=== PATIENT | female | born 1960 | race Caucasian/White ===

== ENCOUNTER 2018-04-26 12:17 | Emergency (ER) | payer BC, OTHER ==
[2018-04-26] MEDS ORDERED: TORAdol 30 mg Injection IM ONE (13:00)
[2018-04-26] MEDS ORDERED: Norflex 60 MG/2 ML IM ONE (13:00)
[2018-04-26] MEDS ORDERED: Norflex 60 MG/2 ML ONE (13:06)
[2018-04-26] MEDS ORDERED: TORAdol 30 mg Injection ONE (13:06)
--- NOTE | 2018-04-26 13:56 | XRAY ---
Exam: Two-view chest from 04/26/2018. Comparison: Two-view chest from 07/01/2014. Indication: Mid back pain. Findings: Upright PA and lateral chest films are submitted for evaluation. The heart size and contour are normal. A minimal epicardial fat pad is seen at the left cardiophrenic angle representing no change. Also, minimal subsegmental atelectasis versus small focal scar is seen at the lateral left lung base. The remainder of the left lung appears clear. I see a calcified granuloma overlying the lateral right lung base as well as several granulomatous calcifications at the inferior margin of the right hilum consistent with old healed granulomatous disease. This is stable. The remainder of the right lung field appears clear. No vascular congestion or pleural fluid is seen. No pneumothorax is seen. No infiltrate is seen. The patient is status post cholecystectomy. I see evidence of a right shoulder replacement revision. Slight convexity of the lower midthoracic spine toward the right and the thoracolumbar junction toward the left is seen on the frontal film. No thoracic spine compression fracture is seen. Bone demineralization is evident. Impression: 1. Stable, mild, old healed granulomatous disease on the right. 2. Minimal subsegmental atelectasis versus focal scar at the lateral left lung base. This is noted adjacent to a small epicardial fat-pad at the left cardiophrenic angle. 3. No infiltrates or other acute cardiopulmonary disease is seen. 4. Slight S-shaped scoliosis and right shoulder joint arthroplasty revision are seen. There is no acute thoracic spine fracture seen.
--- NOTE | 2018-04-26 14:02 | XRAY ---
Three-view lumbar spine series from 04/26/2018. Comparison: Two-view lumbar spine series from 02/08/2016 and 06/05/2013. Indication: Mid back pain. Findings: AP, lateral image, and a coned-down lateral image of the lumbosacral junction were obtained. There are 5 [id number] lumbar-type vertebra. The sacroiliac joints appear unremarkable on the AP image. Surgical clips consistent with prior cholecystectomy are seen within the right upper quadrant. There is an unremarkable lumbar lordosis. I see no acute lumbar spine fracture, AP traumatic subluxation, or focal bone destruction. There is a suggestion of slight retrolisthesis of L1 with respect to L2, L2 with respect L3, and L3 with respect L4 of about 1-2 mm at each interspace level. In retrospect, I believe this is unchanged. This could be due to some ligamentous laxity. The lumbar interspace heights are adequately maintained. Small anterior vertebral endplate spurs are seen at L2-L3. I note sclerosis and spurring at the L5-S1 facet joints suggesting osteoarthritis. This causes mild compromise upon the L5-S1 neural foramen from the posterior aspect. This is stable. Minimal vascular calcification is seen within the abdominal aorta. No bone destruction is seen. Impression: 1. No acute lumbar spine fracture, AP traumatic subluxation, or other significant focal bone lesion is seen. 2. Incidentally, I believe there is about 1-2 mm retrolisthesis of L1 with respect to L2, L2 with respect to L3, and L3 with respect L4 on the lateral image. In retrospect, this is unchanged. This may be due to some ligamentous laxity. Consider upright lateral flexion and extension views of the lumbar spine for further evaluation. 3. Moderate facet joint arthropathy is seen at L5-S1 representing no significant change.
--- NOTE | 2018-04-26 14:06 | ERPHSYRPT ---
- History of Present Illness Time Seen by Provider: 04/26/18 12:30 Source: patient Exam Limitations: clinical condition Patient Subjective Stated Complaint: Mid back pain after sneezing Triage Nursing Assessment: Pt presents to the ED with complaints of mid back pain. Pt states she sneezed and felt a "pop" in her back. Pt states hx of back pain. Pt states movement makes pain worse, better with rest. No distress noted, skin PWD. Physician History: PATIENT WITH A HISTORY OF RHEUMATOID ARTHRITIS, AND CHRONIC BACK PAIN, SNEEZED THIS AM AND DEVELOPED MID BACK PAIN EXACERBATED UPON BREATHING OR MOTION OF TORSO. DENIES NUMBNESS, TINGLING OR WEAKNESS IN EXTREMITIES, DYSPNEA, FALL OR TRAUMA. Timing/Duration: today Method of Injury: other (SNEEZED) Quality: sharp Back Pain Location: lumbar spine Severity of Pain-Max: moderate Modifying Factors: Improves With: movement (INSPIRATION) Associated Symptoms: denies symptoms Previous symptoms: other (HISTORY OF CHRONIC BACK PAIN) Allergies/Adverse Reactions: codeine Allergy (Verified 04/24/15 05:10) estradiol Allergy (Verified 05/31/16 14:04) fluconazole Allergy (Verified 05/31/16 14:04) hydroxychloroquine sulfate [From Plaquenil] Allergy (Verified 05/31/16 14:04) meloxicam Allergy (Verified 05/31/16 14:04) metoclopramide HCl [From Reglan] Allergy (Verified 05/31/16 14:04) Sulfa (Sulfonamide Antibiotics) Allergy (Verified 04/24/15 05:10) sulfamethoxazole [From Bactrim] Allergy (Verified 05/31/16 14:04) trimethoprim [From Bactrim] Allergy (Verified 05/31/16 14:04) fentanyl Adverse Reaction (Verified 04/24/15 05:10) hydrochlorothiazide Adverse Reaction (Verified 04/24/15 05:10) Home Medications: Amlodipine Besylate 10 mg [Norvasc 10 MG] 10 mg PO DAILY 04/24/15 [History] Calcium Citrate/Vitamin D3 [Calcitrate + Vit D Caplet] 1 tab PO DAILY 04/24/15 [ History] Lactobacillus Combo No.6 [Probiotic Complex] 1 tab PO DAILY 04/24/15 [History] Metaxalone [Skelaxin] 800 mg PO TIDPRN 05/05/16 [History] Hydrocodone/Acetaminophen [Hydrocodone-Acetamin 7.5-325] 1 tab PO BID 04/26/18 [ History] Lisinopril [Lisinopril] 20 mg PO DAILY 04/26/18 [History] Hx Tetanus, Diphtheria Vaccination/Date Given: No Hx Influenza Vaccination/Date Given: Yes Hx Pneumococcal Vaccination/Date Given: No Immunizations Up to Date: No - Review of Systems Constitutional: No Fever, No Chills Respiratory: No Cough, No Dyspnea Cardiac: No Chest Pain, No Edema, No Syncope Abdominal/Gastrointestinal: No Abdominal Pain, No Nausea, No Vomiting, No Diarrhea Musculoskeletal: Back Pain Skin: No Rash - Past Medical History Pertinent Past Medical History: Yes Neurological History: Migraines Cardiac History: Hypertension Musculoskeletal History: Osteoporosis GI Medical History: Ulcer History: Other - Past Surgical History Past Surgical History: Yes Musculoskeletal: Orthopedic Surgery - Social History Smoking Status: Never smoker Exposure to second hand smoke: No Drug Use: none Patient Lives Alone: No - Female History Hx Now: No - Nursing Vital Signs Nursing Vital Signs: Initial Vital Signs Temperature 98.1 F 04/26/18 12:21 Pulse Rate 70 04/26/18 12:21 Respiratory Rate 16 04/26/18 12:21 Blood Pressure 129/81 04/26/18 12:21 O2 Sat by Pulse Oximetry 95 04/26/18 12:21 Pain Scale Pain Intensity [] 9 Pain Intensity 9 - Physical Exam General Appearance: mild distress Back Exam: normal inspection, decreased range of motion, point tenderness ( THERE IS LUMBAR L-1 SPINAL, PARASPINAL TENDERNESS TENDERNESS, NO CVA TENDERNESS) Peripheral Pulses: carotid (R): 2+, carotid (L): 2+, femoral (R): 2+, femoral (L ): 2+, dorsalis-pedis (R): 2+, dorsalis-pedis (L): 2+ Neurologic Exam: alert, oriented x 3 SpO2 Interpretation: normal SpO2: 95 Oxygen Delivery: Room Air - Radiology Exams Chest X-ray Interpretation: Discussed w/ radiologist (STABLE MILD OLD HEALED GRANULOMATOUS DISEASE ON THE RIGHT), No Infiltrates L-Spine X-ray Interpretation: Discussed w/ radiologist (NO LUMBAR SPINE FRACTURE , TRAUMATIC SUBLUXATION, THERE IS INCIDENTALLY 1-2 MM RETROLISTHESIS OF L1 WITH L2 AND L2 ON L3 AND L3 WITH RESPECT TO L4) Ordered Tests: Active Orders 24 hr Category Date Time Status CHEST 2 VIEWS (PA AND LAT) Stat Exams 04/26/18 13:00 Completed LUMBAR LIMITED (2 OR 3 VIEWS) Stat Exams 04/26/18 13:01 Completed Medication Summary Discontinued Medications Generic Name Dose Route Start Last Admin Trade Name Freq PRN Reason Stop Dose Admin Ketorolac Tromethamine 60 mg 04/26/18 13:00 04/26/18 13:20 Toradol 30 Mg Injection IM 04/26/18 13:01 60 mg STAT ONE Administration Ketorolac Tromethamine Confirm 04/26/18 13:06 Toradol 30 Mg Injection Administered 04/26/18 13:07 Dose 60 mg .ROUTE .STK-MED ONE Orphenadrine Citrate 60 mg 04/26/18 13:00 04/26/18 13:20 Norflex 60 Mg/2 Ml IM 04/26/18 13:01 60 mg STAT ONE Administration Orphenadrine Citrate Confirm 04/26/18 13:06 Norflex 60 Mg/2 Ml Administered 04/26/18 13:07 Dose 60 mg .ROUTE .STK-MED ONE - Progress Progress: improved, pain not gone completely Progress Note: 04/26/18 14:12 ADMINISTERED NORFLEX 60MG IM AND TORADOL 60MG IM Counseled pt/family regarding: diagnosis, need for follow-up, rad results - Departure Time of Disposition: 14:25 Departure Disposition: Home Clinical Impression: ACUTE THORACIC LUMBAR STRAIN Condition: Stable Critical Care Time: No Referrals: JAXSON CARBAJAL MD [Primary Care Provider] - Additional Instructions: FOLLOWUP WITH YOUR PRIMARY CARE PROVIDER FOR EVALUATION, TREATMENT PHYSICAL THERAPY AND PAIN CLINIC REFERRAL. BEGIN NORFLEX 100MG TWICE DAILY FOR MUSCLE SPASMS. PREDNISONE 20MG, 2 TABLETS DAILY FOR 4 DAYS. NORCO 10/325 EVERY 4 HOURS FOR PAIN NEEDED. Prescriptions: Hydrocodone/APAP 10/325 mg [[place] 10/325 MG Tablet] 1 tab PO Q4H PRN PRN # 8 tablet MDD 8 PRN Reason: Pain Orphenadrine Citrate 100 mg [Norflex 100 MG Tablet] 100 mg PO BID 5 Days # 10 tab Prednisone 20 mg [Deltasone 20 mg] 2 tab PO DAILY #8 tablet
[2018-04-26 14:39] VITALS: BP 122/75; PULSE 75; O2SAT 98
== END 2018-04-26 14:39 | disposition home or self-care (01) ==
LOC: ED 12:17
DX: S29.012A Strain of muscle and tendon of back wall of thorax, initial encounter (principal); S39.012A Strain of muscle, fascia and tendon of lower back, initial encounter; S33.5XXA Sprain of ligaments of lumbar spine, initial encounter; X50.0XXA Overexertion from strenuous movement or load, initial encounter; M06.9 Rheumatoid arthritis, unspecified; M54.9 Dorsalgia, unspecified; G89.29 Other chronic pain; R20.2 Paresthesia of skin
CPT/HCPCS: 71046; 72100; 96372; 99283; J1885; J2360

== ENCOUNTER 2019-06-26 14:44 | Day surgery (SDC) | payer BC ==
[2019-06-26] MEDS ORDERED: Xylocaine 1% Vial 30 ML PF IJ ONE (14:45)
[2019-06-26] MEDS ORDERED: Depo-Medrol 40 MG/ML IM ONE (14:45)
[2019-06-26] MEDS ORDERED: Marcaine 0.5% SDV 10 ML IJ ONE (14:45)
--- NOTE | 2019-06-26 18:37 | XRAY ---
Indication: Right hip injection. Intraoperative fluoroscopy was provided for 12 seconds. Single digital spot image submitted for interpretation demonstrates needle tip projecting just lateral to the right femur neck. Small amount of contrast injected for needle tip placement. Correlate with intraoperative findings/report.
--- NOTE | 2019-06-26 18:39 | XRAY ---
12 seconds of fluoroscopy was used in surgery for a right intra-articular hip injection.
== END 2019-06-26 17:18 | disposition home or self-care (01) ==
LOC: SDC-PAIN 14:44
PROVIDERS: ATTEND Psychiatry & Neurology Pain Medicine
DX: M16.11 Unilateral primary osteoarthritis, right hip (principal); M06.9 Rheumatoid arthritis, unspecified; K21.9 Gastro-esophageal reflux disease without esophagitis; M81.0 Age-related osteoporosis without current pathological fracture; Z79.899 Other long term (current) drug therapy
CPT/HCPCS: 20610; 73501; 77002; J1030; J2001; Q9966

== ENCOUNTER 2019-09-11 14:17 | Day surgery (SDC) | payer BC ==
[2019-09-11] MEDS ORDERED: Xylocaine 1% Vial 30 ML PF IJ ONE (14:18)
[2019-09-11] MEDS ORDERED: Depo-Medrol 40 MG/ML IM ONE (14:18)
[2019-09-11] MEDS ORDERED: Sodium Chloride 0.9(Preservative Free) 10 ML IJ ONE (14:18)
[2019-09-11] MEDS ORDERED: TORAdol 30 mg Injection ONE (15:07)
--- NOTE | 2019-09-11 16:47 | XRAY ---
Indication: Caudal GISELLE. Intraoperative fluoroscopy was provided for 21 seconds. 4 digital spot images submitted for interpretation demonstrates posterior midline needle tip projecting just posterior to the sacrococcygeal junction. Small amount of contrast injected for needle tip placement. Correlate with intraoperative findings/report.
--- NOTE | 2019-09-11 16:54 | XRAY ---
21 seconds fluoroscopy time in surgery for caudal GISELLE.
== END 2019-09-11 16:00 | disposition home or self-care (01) ==
LOC: SDC-PAIN 14:17
PROVIDERS: ATTEND Psychiatry & Neurology Pain Medicine
DX: M54.16 Radiculopathy, lumbar region (principal); M06.9 Rheumatoid arthritis, unspecified; K21.9 Gastro-esophageal reflux disease without esophagitis; Z79.899 Other long term (current) drug therapy
CPT/HCPCS: 62323; 72020; 77003; J1030; J1885; J2001; Q9966

== ENCOUNTER 2020-01-01 10:14 | Day surgery (SDC) | payer BC ==
[2020-01-01] MEDS ORDERED: Xylocaine-Mpf 2% 5 Ml Vial IJ ONE (10:15)
[2020-01-01] MEDS ORDERED: Depo-Medrol 40 MG/ML IM ONE (10:15)
[2020-01-01] MEDS ORDERED: Ketamine HCl 50 MG/ML ONE (10:50)
[2020-01-01] MEDS ORDERED: DIPRIVAN 200 MG/20 ML IV ONE (10:50)
--- NOTE | 2020-01-01 11:55 | XRAY ---
Indication: Bilateral L3-S1 MBB. Intraoperative fluoroscopy was provided for 9 seconds. Single digital spot image submitted for interpretation demonstrate posterior needle tips projecting over the expected course of the left and right L3-S1 nerve roots. Correlate with intraoperative findings/report.
--- NOTE | 2020-01-01 11:58 | XRAY ---
9 seconds of fluoroscopy was used in surgery for a bilateral L3-L4, L4-L5, and L5-S1 MBB.
[2020-01-01] MEDS ORDERED: Lactated Ringers 1,000 ML IV ONE (13:09)
== END 2020-01-01 11:20 | disposition home or self-care (01) ==
LOC: SDC-PAIN 10:14
PROVIDERS: ATTEND Psychiatry & Neurology Pain Medicine
DX: M47.816 Spondylosis without myelopathy or radiculopathy, lumbar region (principal); M06.9 Rheumatoid arthritis, unspecified; K21.9 Gastro-esophageal reflux disease without esophagitis; M81.0 Age-related osteoporosis without current pathological fracture; F41.8 Other specified anxiety disorders; Z79.899 Other long term (current) drug therapy
CPT/HCPCS: 64493; 64494; 64495; 72020; 77002; J1030; J2704

== ENCOUNTER 2020-02-21 11:33 | Emergency (ER) | payer BC ==
[2020-02-21] MEDS ORDERED: Sodium Chloride 0.9% 1000 ML 1,000 ML IV STA (12:15)
--- NOTE | 2020-02-21 12:22 | ERPHSYRPT ---
- History of Present Illness Time Seen by Provider: 02/21/20 12:00 Historian: patient Patient Subjective Stated Complaint: pt reports RUQ abd pain that radiates to the right mid back and up to her shoulder. pt states it feels like there is air she can feel gurgling in her stomach. pt reports history of an ulcer, states she called her PCP office and they directed her to ER for a CT scan to rule out a perforated ulcer. pt also reports fatigue for 2 weeks for which she has seen her folder seamer and her PCP, reports she had an outpatient CBC that was normal. Triage Nursing Assessment: pt is aox3, pupils perrl, afebrile, resps easy and non labored, cap refill < 3 seconds, radial pulses strong and equal, abd is soft , bowel sounds present and normoactive x 4. pt skin pink warm dry. Physician History: 60 years old female with a history of gastric ulcers, prior cholecystectomy presented in the ER with chief complaint of right upper quadrant pain for the last 3 to 4 days, patient described this as a sharp throbbing twisting sensation moderate to severe intensity, aggravated with eating and no significant relieving factors and goes away on its own after a few minutes. It is progressively worsening since last night. She denies any vomiting but has mild nausea with it. Denies any diarrhea. Patient is sent in here by primary care for further evaluation and possible CT abdomen pelvis. Patient reports she has recently restarted her Prilosec but does not seem helping much. Timing/Duration: day(s) (3), gradual onset, worse Activities at Onset: rest Quality: sharpness, throbbing Abdominal Pain Onset Location: RUQ, epigastric Pain Radiation: back Severity of Pain-Max: moderate Severity of Pain-Current: moderate Modifying Factors: Improves With: nothing Associated Symptoms: nausea, No vomiting Previous symptoms: no prior history Allergies/Adverse Reactions: codeine Allergy (Verified 02/21/20 11:54) estradiol Allergy (Verified 02/21/20 11:54) fluconazole Allergy (Verified 02/21/20 11:54) hydroxychloroquine sulfate [From Plaquenil] Allergy (Verified 02/21/20 11:54) meloxicam Allergy (Verified 02/21/20 11:54) metoclopramide HCl [From Reglan] Allergy (Verified 02/21/20 11:54) Sulfa (Sulfonamide Antibiotics) Allergy (Verified 02/21/20 11:54) sulfamethoxazole [From Bactrim] Allergy (Verified 02/21/20 11:54) trimethoprim [From Bactrim] Allergy (Verified 02/21/20 11:54) fentanyl Adverse Reaction (Verified 02/21/20 11:54) hydrochlorothiazide Adverse Reaction (Verified 02/21/20 11:54) Home Medications: Amlodipine Besylate 10 mg [Norvasc 10 MG] 10 mg PO DAILY 04/24/15 [History] Calcium Citrate/Vitamin D3 [Calcitrate + Vit D Caplet] 1 tab PO DAILY 04/24/15 [ History] Lactobacillus Combo No.6 [Probiotic Complex] 1 tab PO DAILY 04/24/15 [History] Metaxalone [Skelaxin] 800 mg PO TIDPRN 05/05/16 [History] Hydrocodone/Acetaminophen [Hydrocodone-Acetamin 7.5-325] 1 tab PO BID 04/26/18 [ History] lisinopriL [Lisinopril] 20 mg PO DAILY 04/26/18 [History] Hx Tetanus, Diphtheria Vaccination/Date Given: Yes Hx Influenza Vaccination/Date Given: Yes Hx Pneumococcal Vaccination/Date Given: Yes Immunizations Up to Date: Yes Travel Risk - International Travel Have you traveled outside of the country in past 3 weeks: No Have you or anyone close to you been diagnosed with or: No Do your reside in a community with a known COVID-19 case?: Yes If Yes where:: [facility] - Coronavirus Screening Has patient experienced Coronavirus symptoms: No - Review of Systems Constitutional: No Symptoms Eyes: No Symptoms Ears, Nose, & Throat: No Symptoms Respiratory: No Symptoms Cardiac: No Symptoms Abdominal/Gastrointestinal: Abdominal Pain, Nausea Genitourinary Symptoms: No Symptoms Musculoskeletal: No Symptoms Skin: No Symptoms Neurological: No Symptoms Psychological: No Symptoms Endocrine: No Symptoms Hematologic/Lymphatic: No Symptoms Immunological/Allergic: No Symptoms - Past Medical History Pertinent Past Medical History: Yes Neurological History: Migraines Cardiac History: Hypertension Respiratory History: No Pertinent History Endocrine Medical History: Other Musculoskeletal History: Rheumatoid Arthritis GI Medical History: Gallbladder Disease, Ulcer History: Other Other Medical History: pre diabetic, kidney stones - Past Surgical History Past Surgical History: Yes Gastrointestinal: Cholecystectomy Musculoskeletal: Joint Replacement, Orthopedic Surgery Other Surgical History: r shoulder replaced - Social History Smoking Status: Never smoker Exposure to second hand smoke: No Drug Use: none Patient Lives Alone: No - Female History Hx Now: No - Nursing Vital Signs Nursing Vital Signs: Initial Vital Signs Temperature 99 F 02/21/20 11:37 Pulse Rate 91 H 02/21/20 11:37 Respiratory Rate 18 02/21/20 11:37 Blood Pressure 155/89 02/21/20 11:37 O2 Sat by Pulse Oximetry 95 02/21/20 11:37 Pain Scale Pain Intensity 7 - Physical Exam General Appearance: no apparent distress Eye Exam: PERRL/EOMI, eyes nml inspection Ears, Nose, Throat Exam: normal ENT inspection, pharynx normal Neck Exam: normal inspection, non-tender, supple, full range of motion Respiratory Exam: normal breath sounds, lungs clear Cardiovascular Exam: regular rate/rhythm, normal heart sounds Gastrointestinal/Abdomen Exam: soft, tenderness (Right upper quadrant) Back Exam: normal inspection, normal range of motion, CVA tenderness (Right) Extremity Exam: normal inspection, normal range of motion, pelvis stable Neurologic Exam: alert, oriented x 3, cooperative Skin Exam: normal color, warm SpO2 Interpretation: normal SpO2: 95 O2 Delivery: Room Air Ordered Tests: Active Orders 24 hr Category Date Time Status IV Insertion STAT Care 02/21/20 12:15 Active NPO (ED) STAT Care 02/21/20 12:15 Active ABDOMEN AND PELVIS W CONTRAST [CT] Stat Exams 02/21/20 12:16 Completed AMYLASE Stat Lab 02/21/20 12:40 Completed CBC W DIFF Stat Lab 02/21/20 12:40 Completed CMP Stat Lab 02/21/20 12:40 Completed LIPASE Stat Lab 02/21/20 12:40 Completed TROPONIN Q3H Lab 02/21/20 12:40 Completed TROPONIN Q3H Lab 02/21/20 15:30 Ordered TROPONIN Q3H Lab 02/21/20 18:30 Ordered TROPONIN Q3H Lab 02/21/20 21:30 Ordered TROPONIN Q3H Lab 02/22/20 00:30 Ordered UA W/RFX UR CULTURE Stat Lab 02/21/20 14:22 Uncollected Medication Summary Discontinued Medications Generic Name Dose Route Start Last Admin Trade Name Freq PRN Reason Stop Dose Admin Sodium Chloride 1,000 mls @ 999 mls/hr 02/21/20 12:15 02/21/20 13:19 Sodium Chloride 0.9% 1000 Ml IV 02/21/20 13:15 999 mls/hr .Q1H1M STA Administration Sodium Chloride Confirm 02/21/20 12:44 Sodium Chloride 0.9% 1000 Ml Administered 02/21/20 12:45 Dose 1,000 mls @ ud .ROUTE .STK-MED ONE Magnesium Hydroxide 45 ml 02/21/20 14:26 02/21/20 14:30 Gi Cocktail 45 Ml (Maalox/Lidocaine) PO 02/21/20 14:27 Not Given STAT ONE Lab/Rad Data: Laboratory Result Diagrams 02/21/20 12:40 02/21/20 12:40 Laboratory Results 02/21/20 02/21/20 02/21/20 Range/Units 12:40 12:40 12:40 WBC 6.4 (4.0-10.5) K/mm3 RBC 5.32 (4.1-5.4) M/mm3 Hgb 16.0 (12.0-16.0) gm/dl Hct 49.4 H (35-47) % MCV 92.9 (78-100) fl MCH 30.1 (26-32) pg MCHC 32.4 (32-36) g/dl RDW 13.7 (11.5-14.0) % Plt Count 223 (150-450) K/mm3 MPV 10.2 (7.5-11.0) fl Gran % 31.8 L (36.0-66.0) % Eos # (Auto) 0.18 (0-0.5) Absolute Lymphs (auto) 3.26 (1.0-4.6) Absolute Monos (auto) 0.86 (0.0-1.3) Lymphocytes % 51.3 H (24.0-44.0) % Monocytes % 13.5 H (0.0-12.0) % Eosinophils % 2.8 (0.00-5.0) % Basophils % 0.6 (0.0-0.4) % Absolute Granulocytes 2.02 (1.4-6.9) Basophils # 0.04 (0-0.4) Sodium 141 (137-145) mmol/L Potassium 4.0 (3.5-5.1) mmol/L Chloride 102 (98-107) mmol/L Carbon Dioxide 31 H (22-30) mmol/L Anion Gap 12.3 (5-15) MEQ/L BUN 18 H (7-17) mg/dL Creatinine 0.77 (0.52-1.04) mg/dL Estimated GFR > 60.0 ML/MIN Glucose 74 (74-106) mg/dL Calcium 9.9 (8.4-10.2) mg/dL Total Bilirubin 0.70 (0.2-1.3) mg/dL AST 28 (14-36) U/L ALT 20 (0-35) U/L Alkaline Phosphatase 66 (38-126) U/L Troponin I < 0.012 (0.000-0.034) ng/mL Serum Total Protein 8.3 H (6.3-8.2) g/dL Albumin 4.7 (3.5-5.0) g/dL Amylase 74 (30-110) U/L Lipase 140 (23-300) U/L - Progress Progress: improved, pain not gone completely, re-examined Progress Note: 02/21/20 14:46 60 years old is evaluated for upper abdominal pain. Acute abdomen work-up including CT abdomen pelvis with contrast is negative for any acute findings. She is offered pain medication and GI cocktail which she refused. On reevaluation patient states her pain is getting better. I have recommended continuing with Prilosec and outpatient follow-up with primary care and need upper GI scope for further evaluation. I do not think she needs any further work-up and is stable for discharge with outpatient follow-up. Discussed signs symptoms of worsening needing return to ER which she seems understanding. - Departure Departure Disposition: Home Clinical Impression: Upper abdominal pain GERD (gastroesophageal reflux disease) Qualifiers: Esophagitis presence: without esophagitis Qualified Code(s): K21.9 - Gastro- esophageal reflux disease without esophagitis Condition: Stable Critical Care Time: No Referrals: JAXSON CARBAJAL MD [Primary Care Provider] - Follow Up with PCP/3 days Instructions: Peptic Ulcers (DC) Additional Instructions: Continue with Prilosec. Follow-up with your primary care for reevaluation and may need referral for GI. Take Tylenol as needed. Do not take ibuprofen. Return to ER for any worsening.
[2020-02-21] MEDS ORDERED: Sodium Chloride 0.9% 1000 ML 1,000 ML ONE (12:44)
[2020-02-21 12:51] LABS: Absolute Neutrophil Ct (ANC) 2.02 (1.4-6.9); BASOPHIL % 0.6 % (0.0-0.4); Basophil (Absolute #) 0.04 (0-0.4); Eosinophil % 2.8 % (0.00-5.0); Eosinophil (Absolute #) 0.18 (0-0.5); Hematocrit 49.4 % (35-47); Lymphocyte (Absolute #) 3.26 (1.0-4.6); Lymphocytes % 51.3 % (24.0-44.0); Mean Cell Volume 92.9 fl (78-100); Mean Corpuscular Hemoglobin 30.1 pg (26-32); Mean Corpuscular Hgb Concent. 32.4 g/dl (32-36); Mean Platelet Volume 10.2 fl (7.5-11.0); Monocyte (Absolute #) 0.86 (0.0-1.3); Monocytes % 13.5 % (0.0-12.0); Neutrophil % 31.8 % (36.0-66.0); Platelet Count 223 K/mm3 (150-450); Red Blood Count 5.32 M/mm3 (4.1-5.4); Red Cell Distribution Width 13.7 % (11.5-14.0); White Blood Count 6.4 K/mm3 (4.0-10.5)
[2020-02-21 13:34] LABS: ALBUMIN 4.7 g/dL (3.5-5.0); ALKALINE PHOSPHATASE 66 U/L (38-126); AMYLASE 74 U/L (30-110); ANION GAP 12.3 MEQ/L (5-15); BLOOD UREA NITROGEN 18 mg/dL (7-17); CHLORIDE 102 mmol/L (98-107); Calcium 9.9 mg/dL (8.4-10.2); Carbon Dioxide 31 mmol/L (22-30); Creatinine 1 0.77 mg/dL (0.52-1.04); Glucose 74 mg/dL (74-106); LIPASE 140 U/L (23-300); SGOT/AST 28 U/L (14-36); SGPT/ALT 20 U/L (0-35); SODIUM 141 mmol/L (137-145); Total Protein 8.3 g/dL (6.3-8.2)
--- NOTE | 2020-02-21 13:40 | XRAY ---
Indication: Right flank pain. Distention. Multiple contiguous axial images obtained through the abdomen and pelvis the 80 cc Isovue 370 contrast only. Comparison: September 05, 2009. Lung bases again demonstrates mild bibasilar dependent atelectasis and new right lower lobe and right infrahilar calcified granulomas. No infiltrate or effusion. Heart is not enlarged. Stable small hiatal hernia. Noncontrasted stomach and bowel loops appear nonobstructed. Normal appendix. Again mild scattered colonic diverticulosis, left lobe hepatic cysts, calcified splenic granulomas, cholecystectomy, and hysterectomy. No free fluid/air. Remaining liver, pancreas, spleen, adrenal glands, kidneys, ureters, and bladder appear unremarkable. There remains mild scattered aortoiliac calcifications. No AAA or pathologic retroperitoneal lymphadenopathy. Osseous structures intact Impression: 1. Again incidental colonic diverticulosis, small hiatal hernia, hepatic cysts, and evidence for old granulomatous disease. 2. Remaining CT abdomen/pelvis with contrast exam is negative.
[2020-02-21] MEDS ORDERED: GI COCKTAIL 45 ML (Maalox/Lidocaine) PO ONE (14:26)
[2020-02-21 15:01] VITALS: BP 127/78; PULSE 80; O2SAT 96
== END 2020-02-21 15:00 | disposition home or self-care (01) ==
LOC: ED 11:33
DX: K21.9 Gastro-esophageal reflux disease without esophagitis (principal); I10 Essential (primary) hypertension; Z79.899 Other long term (current) drug therapy
CPT/HCPCS: 36000; 36415; 74177; 80053; 82150; 83690; 84484; 85025; 99284

== ENCOUNTER 2021-07-14 14:31 | Day surgery (SDC) | payer BC ==
[2021-07-14] MEDS ORDERED: Sodium Chloride 0.9(Preservative Free) 10 ML IJ ONE (14:32)
[2021-07-14] MEDS ORDERED: Depo-Medrol 40 MG/ML IM ONE (14:32)
[2021-07-14] MEDS ORDERED: Xylocaine 1% Vial 30 ML PF IJ ONE (14:32)
[2021-07-14] MEDS ORDERED: Reglan 10 MG/2 ML ONE (14:35)
[2021-07-14] MEDS ORDERED: Pepcid 20 MG VIAL IV ONE (14:35)
[2021-07-14] MEDS ORDERED: Lactated Ringers 1,000 ML IV ONE (15:37)
[2021-07-14] MEDS ORDERED: BICITRA 30 ML CUP ONE (15:42)
[2021-07-14] MEDS ORDERED: BENADRYL 50 MG/ML ONE (16:32)
[2021-07-14] MEDS ORDERED: Zofran 4 MG/2 ML VIAL ONE (16:33)
--- NOTE | 2021-07-15 16:01 | XRAY ---
21 seconds of fluoroscopy was used in surgery for a lumbar GISELLE.
--- NOTE | 2021-07-16 09:27 | XRAY ---
Indication: Lumbar GISELLE. Intraoperative fluoroscopy was provided for 21 seconds. 2 digital spot images submitted for interpretation demonstrate a posterior spinal needle tip at the L5-S1 level in the midline. Some contrast has been injected for needle tip placement. Correlate with intraoperative findings/report.
== END 2021-07-14 16:58 | disposition home or self-care (01) ==
LOC: SDC-PAIN 14:31
PROVIDERS: ATTEND Psychiatry & Neurology Pain Medicine
DX: M54.16 Radiculopathy, lumbar region (principal); Z79.899 Other long term (current) drug therapy
CPT/HCPCS: 62323; 72100; 77003; J1030; J1200; J2001; J2405; Q9966; A9270-GY

== ENCOUNTER 2021-09-01 11:09 | Day surgery (SDC) | payer BC ==
[2021-09-01] MEDS ORDERED: BUPIVACAINE 0.5% VIAL IJ ONE (11:10)
[2021-09-01] MEDS ORDERED: Depo-Medrol 40 MG/ML IM ONE (11:10)
[2021-09-01] MEDS ORDERED: TORAdol 30 mg Injection ONE (12:27)
[2021-09-01] MEDS ORDERED: BENADRYL 50 MG/ML ONE (12:27)
[2021-09-01] MEDS ORDERED: DIPRIVAN 200 MG/20 ML IV ONE (12:32)
--- NOTE | 2021-09-01 15:16 | XRAY ---
Indication: Right SI joint injection. Intraoperative fluoroscopy provided for 16 seconds. 2 digital spot image submitted for interpretation demonstrates posterior needle tip projecting over the inferior right SI joint. Correlate with intraoperative findings/report.
[2021-09-01] MEDS ORDERED: Lactated Ringers 1,000 ML IV ONE (15:21)
--- NOTE | 2021-09-01 16:44 | XRAY ---
16 seconds fluoroscopy time in surgery for injection of the right SI joint.
== END 2021-09-01 12:57 | disposition home or self-care (01) ==
LOC: SDC-PAIN 11:09
PROVIDERS: ATTEND Psychiatry & Neurology Pain Medicine
DX: M46.1 Sacroiliitis, not elsewhere classified (principal); Z79.899 Other long term (current) drug therapy
CPT/HCPCS: 27096; 72020; 77002; J1030; J1200; J1885; J2704; G0260

== ENCOUNTER 2022-07-10 16:30 | Emergency (ER) | payer OTHER ==
[2022-07-10 17:46] LABS: Group A Strep NOT DETECTED (NEGATIVE)
[2022-07-10 17:58] LABS: INFLUENZA A NEGATIVE (NEGATIVE); INFLUENZA B NEGATIVE (NEGATIVE); RESPIRATORY SYNCTIAL VIRUS NEGATIVE (Negative); SARS-CoV-2 Xpert Express NEGATIVE (NEGATIVE)
[2022-07-10] MEDS ORDERED: Kenalog-40 IM ONE (18:33)
--- NOTE | 2022-07-10 18:40 | ERPHSYRPT ---
- History of Present Illness Time Seen by Provider: 07/10/22 16:39 Source: patient Exam Limitations: no limitations Patient Subjective Stated Complaint: C/O sore throat, body aches, cough, fatigue, SOB at times since June 28. States priscilla has [place]. Triage Nursing Assessment: Patient ambulated back to ED. She is alert and oriented. NO SOB noted at this time. LATOYA MERCADO. Physician History: 62 years old female with history of rheumatoid arthritis presented in the ER with chief complaint of 2 weeks history of sore throat. She has been seen outpatient twice and is on second course of antibiotics with no significant improvement in her symptoms. Reports minimal dry cough without chest pain and occasional difficulty breathing but currently not having any difficulty breathing. She is more concerned about sore throat and enlarged nodes in the neck. She is also complaining of generalized body aches fatigue and tiredness. Has positive exposure to COVID and mono. Timing/Duration: week(s) (2), gradual onset, worse Cough Quality/Degree: mild, dry cough Possible Cause: unknown cause Modifying Factors: Worsens With: coughing Associated Symptoms: cough, muscle aches, sore throat, No chest pain/soreness, No shortness of breath Allergies/Adverse Reactions: codeine Allergy (Verified 07/10/22 16:40) estradiol Allergy (Verified 07/10/22 16:40) fluconazole Allergy (Verified 07/10/22 16:40) hydroxychloroquine sulfate [From Plaquenil] Allergy (Verified 07/10/22 16:40) meloxicam Allergy (Verified 07/10/22 16:40) metoclopramide HCl [From Reglan] Allergy (Verified 07/10/22 16:40) Sulfa (Sulfonamide Antibiotics) Allergy (Verified 07/10/22 16:40) sulfamethoxazole [From Bactrim] Allergy (Verified 07/10/22 16:40) trimethoprim [From Bactrim] Allergy (Verified 07/10/22 16:40) hydrochlorothiazide Adverse Reaction (Verified 07/10/22 16:40) Home Medications: Calcium Citrate/Vitamin D3 [Calcitrate + Vit D Caplet] 1 tab PO DAILY 04/24/15 [History] Lactobacillus Combo No.6 [Probiotic Complex] 1 tab PO DAILY 04/24/15 [History] Hydrocodone/Acetaminophen [Hydrocodone-Acetamin 7.5-325] 1 tab PO BID 04/26/18 [History] Prednisone 20 mg [Deltasone 20 mg] 5 mg PO Q12H PRN PRN 04/07/20 [History] Amoxicillin 1 tab PO TID 07/10/22 [History] Gabapentin [Neurontin ] 1 tab PO HS 07/10/22 [History] Losartan Potassium [Cozaar] 1 tab PO DAILY 07/10/22 [History] Hx Tetanus, Diphtheria Vaccination/Date Given: Yes Hx Influenza Vaccination/Date Given: Yes Hx Pneumococcal Vaccination/Date Given: Yes Immunizations Up to Date: Yes Travel Risk - International Travel Have you traveled outside of the country in past 3 weeks: No - Coronavirus Screening Are you exhibiting any of the following symptoms?: Yes Symptoms: Cough: New Onset, Shortness of Breath, Headaches/Body Aches/Fatigue Close contact with a COVID-19 positive Pt in past 14-21 Days: Yes - Vaccine Status Have you recieved a Covid-19 vaccination: Yes [employer] - Vaccination Dates Date of 2cond Vaccination (if applicable): 2020 - Review of Systems Constitutional: Fatigue, Weakness Eyes: No Symptoms Ears, Nose, & Throat: Throat Pain, Throat Swelling Respiratory: Cough Cardiac: No Symptoms Abdominal/Gastrointestinal: No Symptoms Genitourinary Symptoms: No Symptoms Musculoskeletal: Myalgias Skin: No Symptoms Neurological: No Symptoms Psychological: No Symptoms Endocrine: No Symptoms Hematologic/Lymphatic: No Symptoms Immunological/Allergic: No Symptoms - Past Medical History Pertinent Past Medical History: Yes Neurological History: Migraines Cardiac History: Hypertension Respiratory History: No Pertinent History Endocrine Medical History: Diabetes Type II, Other Musculoskeletal History: Rheumatoid Arthritis GI Medical History: Gallbladder Disease, Ulcer History: Other Other Medical History: kidney stones - Past Surgical History Past Surgical History: Yes Gastrointestinal: Cholecystectomy Musculoskeletal: Joint Replacement, Orthopedic Surgery Female Surgical History: Section Other Surgical History: r shoulder replaced - Social History Smoking Status: Never smoker Exposure to second hand smoke: No Drug Use: none Patient Lives Alone: No - Nursing Vital Signs Nursing Vital Signs: Initial Vital Signs Temperature 97.7 F 07/10/22 16:41 Pulse Rate 81 07/10/22 16:41 Respiratory Rate 20 07/10/22 16:41 Blood Pressure 169/112 07/10/22 16:41 O2 Sat by Pulse Oximetry 96 07/10/22 16:41 Pain Scale Pain Intensity 4 - Physical Exam General Appearance: no apparent distress, alert Eye Exam: PERRL/EOMI Ears, Nose, Throat Exam: TMs normal, moist mucous membranes, pharyngeal erythema Neck Exam: normal inspection, non-tender, supple, full range of motion, lymphadenopathy Respiratory Exam: normal breath sounds, lungs clear Cardiovascular Exam: regular rate/rhythm, normal heart sounds Gastrointestinal/Abdomen Exam: soft Back Exam: normal inspection, normal range of motion Extremity Exam: normal inspection, normal range of motion Neurologic Exam: alert, oriented x 3, cooperative, [employer] II-XII nml as tested Skin Exam: normal color SpO2 Interpretation: normal SpO2: 96 O2 Delivery: Room Air Ordered Tests: Active Orders 24 hr Category Date Time Status CHEST 1 VIEW (PORTABLE) Stat Exams 07/10/22 17:11 Taken [place] Screen Stat Lab 07/10/22 17:18 Completed Medication Summary Discontinued Medications Generic Name Dose Route Start Last Admin Trade Name Freq PRN Reason Stop Dose Admin Triamcinolone Acetonide 40 mg 07/10/22 18:33 Triamcinolone Acetonide 40 Mg/Ml Ml IM 07/10/22 18:34 1XONLY ONE Lab/Rad Data: Laboratory Results 07/10/22 07/10/22 Range/Units 17:18 17:18 Monoscreen NEGATIVE (Negative) Influenza Type A Ag NEGATIVE (NEGATIVE) Influenza Type B Ag NEGATIVE (NEGATIVE) RSV (PCR) NEGATIVE (Negative) SARS-CoV-2 (PCR) NEGATIVE (NEGATIVE) Group A Strep Antibody NOT DETECTED (NEGATIVE) - Progress Progress: unchanged Air Movement: good Progress Note: 07/10/22 18:38 62 years old is evaluated for sore throat with body aches. She has a negative strep flu and mono. Chest x-ray no acute cardiopulmonary findings reviewed by me, official report is pending. Her symptoms seems to be viral etiology, given a shot of steroid and recommended continue with the Medrol dose. We will continue with current course of antibiotics. Discussed signs symptoms of worsening needing return to ER which she seems understanding. Blood Culture(s) Obtained: No Antibiotics given: No Counseled pt/family regarding: lab results, diagnosis, need for follow-up, rad results - Departure Departure Disposition: Home Clinical Impression: Pharyngitis Condition: Stable Critical Care Time: No Referrals: SOLOMON,JAXSON, MD [Primary Care Provider] - Follow up/PCP as directed (1 to 2 days for reevaluation) Instructions: Sore Throat, Adult (DC) Additional Instructions: Continue with your current medications. Take Tylenol/ibuprofen as needed. Follow-up with primary care for reevaluation. Return to ER for any worsening.
[2022-07-10] MEDS ORDERED: Kenalog-40 ONE (18:43)
--- NOTE | 2022-07-10 18:46 | XRAY ---
Indication: Cough, sore throat, and body aches 2 weeks. Comparison: December 07, 2021 Portable chest again demonstrates mild left base subsegmental atelectasis/scarring and a few scattered calcified granulomas. No focal infiltrate, consolidation, or large effusion. Heart not enlarged. Bony thorax intact again with osteopenia and right shoulder arthroplasty. Impression: Continued nonacute chest with chronic features.
[2022-07-10 18:52] VITALS: BP 130/72; PULSE 72; O2SAT 99
== END 2022-07-10 19:07 | disposition home or self-care (01) ==
LOC: ED 16:30
DX: J02.9 Acute pharyngitis, unspecified (principal); R05.9 Cough, unspecified; M79.10 Myalgia, unspecified site; R53.83 Other fatigue; I10 Essential (primary) hypertension; E11.9 Type 2 diabetes mellitus without complications; Z79.899 Other long term (current) drug therapy; Z20.828 Contact with and (suspected) exposure to other viral communicable diseases
CPT/HCPCS: 0241U; 36415; 71045; 86308; 87651; 96372; 99283; J3301

== ENCOUNTER 2023-01-11 10:57 | Day surgery (SDC) | payer OTHER ==
[2023-01-11] MEDS ORDERED: Depo-Medrol 40 MG/ML IM ONE (10:58)
[2023-01-11] MEDS ORDERED: BUPIVACAINE 0.5% VIAL IJ ONE (10:58)
[2023-01-11] MEDS ORDERED: Pepcid 20 MG VIAL IV ONE (11:46)
[2023-01-11] MEDS ORDERED: DIPRIVAN 200 MG/20 ML IV ONE (13:24)
[2023-01-11] MEDS ORDERED: Lactated Ringers 1,000 ML IV ONE (13:32)
--- NOTE | 2023-01-11 14:18 | XRAY ---
Indication: Left SI joint and left hip injection. Intraoperative fluoroscopy provided for 32 seconds. 4 digital spot image obtained prone submitted for interpretation demonstrates posterior needle tip projecting over the left SI joint. Second needle tip lateral to left femur neck with small amount of contrast injected for needle tip placement. Correlate with intraoperative findings/report.
--- NOTE | 2023-01-11 14:18 | XRAY ---
32 seconds of fluoroscopy was used in surgery for a left sacroiliac joint and intra-articular hip injection.
== END 2023-01-11 14:00 | disposition home or self-care (01) ==
LOC: SDC-PAIN 10:57
PROVIDERS: ATTEND Psychiatry & Neurology Pain Medicine
DX: M46.1 Sacroiliitis, not elsewhere classified (principal); E11.9 Type 2 diabetes mellitus without complications; Z79.899 Other long term (current) drug therapy
CPT/HCPCS: 20610; 27096; 72170; 77002; 82947; J1030; J2704; Q9966; G0260

== ENCOUNTER 2023-03-15 10:39 | Day surgery (SDC) | payer OTHER ==
[2023-03-15] MEDS ORDERED: BUPIVACAINE 0.5% VIAL IJ ONE (10:40)
[2023-03-15] MEDS ORDERED: Depo-Medrol 40 MG/ML IM ONE (10:40)
[2023-03-15] MEDS ORDERED: DIPRIVAN 200 MG/20 ML IV ONE (12:19)
--- NOTE | 2023-03-15 12:57 | XRAY ---
Indication: Bilateral L4-S1 MBB. Intraoperative fluoroscopy provided 20 seconds. Single digital spot image submitted for interpretation demonstrates posterior needle tips projecting over the expected left and right L4-S1 nerve roots. Correlate with intraoperative findings/report.
[2023-03-15] MEDS ORDERED: Lactated Ringers 1,000 ML IV ONE (13:03)
--- NOTE | 2023-03-15 15:12 | XRAY ---
20 seconds of fluoroscopy was used in surgery for a bilateral L4-S1 MBB.
== END 2023-03-15 12:46 | disposition home or self-care (01) ==
LOC: SDC-PAIN 10:39
PROVIDERS: ATTEND Psychiatry & Neurology Pain Medicine
DX: M47.816 Spondylosis without myelopathy or radiculopathy, lumbar region (principal); E11.9 Type 2 diabetes mellitus without complications; Z79.899 Other long term (current) drug therapy
CPT/HCPCS: 64493; 64494; 72020; 77002; 82947; J1030; J2704

== ENCOUNTER 2023-06-21 09:08 | Day surgery (SDC) | payer OTHER ==
[2023-06-21] MEDS ORDERED: Depo-Medrol 40 MG/ML IM ONE (09:09)
[2023-06-21] MEDS ORDERED: LIDOCAINE HCL 1% 50 MG/5 ML VL PF IJ ONE (09:09)
[2023-06-21] MEDS ORDERED: BUPIVACAINE 0.5% VIAL IJ ONE (09:09)
[2023-06-21] MEDS ORDERED: DIPRIVAN 200 MG/20 ML IV ONE (10:56)
--- NOTE | 2023-06-21 11:59 | XRAY ---
Indication: Right L4-S1 RFA. Intraoperative fluoroscopy provided for 18 seconds. 4 digital spot image submitted for interpretation demonstrates posterior needle tips projecting over the expected right L4-S1 nerve roots. Correlate with intraoperative findings/report.
--- NOTE | 2023-06-21 12:08 | XRAY ---
18 seconds of fluoroscopy was used in surgery for a right L4-S1 RFA.
[2023-06-21] MEDS ORDERED: Lactated Ringers 1,000 ML IV ONE (12:45)
== END 2023-06-21 11:22 | disposition home or self-care (01) ==
LOC: SDC-PAIN 09:08
PROVIDERS: ATTEND Psychiatry & Neurology Pain Medicine
DX: M47.816 Spondylosis without myelopathy or radiculopathy, lumbar region (principal); E11.9 Type 2 diabetes mellitus without complications; Z79.899 Other long term (current) drug therapy
CPT/HCPCS: 64635; 64636; 72100; 77002; 82947; J1030; J2001; J2704

== ENCOUNTER 2023-09-14 13:15 | Day surgery (SDC) | payer OTHER ==
[2023-09-14] MEDS ORDERED: XYLOCAINE 1% HCL 20 ML MDV IJ ONE (13:16)
[2023-09-14] MEDS ORDERED: Depo-Medrol 40 MG/ML IM ONE (13:16)
[2023-09-14] MEDS ORDERED: BUPIVACAINE 0.5% VIAL IJ ONE (13:16)
[2023-09-14] MEDS ORDERED: BENADRYL 50 MG/ML ONE (14:36)
[2023-09-14] MEDS ORDERED: DIPRIVAN 200 MG/20 ML IV ONE (15:36)
[2023-09-14] MEDS ORDERED: Lactated Ringers 1,000 ML IV ONE (15:43)
--- NOTE | 2023-09-14 16:28 | XRAY ---
Indication: Left L4-S1 RFA Intraoperative fluoroscopy provided for 20 seconds. 5 digital spot image submitted for interpretation demonstrates posterior needle tips projecting over the expected left L4-S1 nerve roots. Correlate with intraoperative findings/report.
--- NOTE | 2023-09-14 16:37 | XRAY ---
20 seconds of fluoroscopy was used in surgery for a left L4-S1 RFA.
== END 2023-09-14 15:50 | disposition home or self-care (01) ==
LOC: SDC-PAIN 13:15
PROVIDERS: ATTEND Psychiatry & Neurology Pain Medicine
DX: M47.816 Spondylosis without myelopathy or radiculopathy, lumbar region (principal); E11.9 Type 2 diabetes mellitus without complications
CPT/HCPCS: 64635; 64636; 72100; 77002; 82947; J1030; J1200; J2704